=== PATIENT | female | born 1970 | race Caucasian/White ===

== ENCOUNTER 2019-04-05 18:20 | Emergency (ER) | payer BC, OTHER ==
[2019-04-05] MEDS ORDERED: IBUPROFEN 600 MG TABLET PO ONE (19:47)
--- NOTE | 2019-04-05 19:49 | ER Document Report ---
ED Medical Screen (RME) - General Chief Complaint: Dizziness Stated Complaint: DIZZINESS Time Seen by Provider: 04/05/19 19:46 Notes: 48-year-old female with recently diagnosed diabetes and anemia presents to the emergency department with heavy abnormal vaginal bleeding, pelvic pain, dizziness, lightheadedness, weakness. Patient had a recent ultrasound about 3 weeks ago diagnosed with an ovarian cyst. Patient said that she had to call out to work today because she is acutely weak and had a near syncopal episode. Exam: Abdomen soft, bowel sounds present, left lower quadrant tenderness to palpation I have greeted and performed a rapid initial assessment of this patient. A comprehensive ED assessment and evaluation of the patient, analysis of test results and completion of medical decision making process will be conducted by an additional ED providers. TRAVEL OUTSIDE OF THE [place] IN LAST 30 DAYS: No - Related Data Allergies/Adverse Reactions: No Known Allergies Allergy (Unverified 11/22/13 22:14) Past Medical History - Social History Family history: Arthritis, DM, Malignancy Renal/ Medical History: Reports: Hx Ectopic , Hx Pelvic Inflammatory Disease. Denies: Hx Ovarian Cysts Malignancy Medical History: Reports: Hx Cervical Cancer - pre cancer cells Psychiatric Medical History: Reports: Hx Bipolar Disorder Past Surgical History: Reports: Hx Cholecystectomy, Hx Tubal Ligation - Immunizations Immunizations up to date: Yes Hx Diphtheria, Pertussis, Tetanus Vaccination: Yes
[2019-04-05 21:08] LABS: ABSOLUTE EOSINOPHILS # (AUTO) 0.1 10^3/uL (0.0-0.6); ABSOLUTE LYMPHOCYTES (AUTO) 1.7 10^3/uL (0.5-4.7); ABSOLUTE MONOCYTES (AUTO) 0.4 10^3/uL (0.1-1.4); ABSOLUTE NEUT (AUTO) 2.7 10^3/uL (1.7-8.2); BASOPHILS % (AUTO) 0.7 % (0-2); EOSINOPHILS % (AUTO) 1.4 % (0-6); HEMATOCRIT 23.6 % (36.0-47.0); LYMPHOCYTES % (AUTO) 34.3 % (13-45); MEAN CORPUSCULAR HEMOGLOBIN 23.2 pg (27.0-33.4); MEAN CORPUSCULAR HGB CONC 31.1 g/dL (32.0-36.0); MEAN CORPUSCULAR VOLUME 75 fl (80-97); MONOCYTES % (AUTO) 8.8 % (3-13); PLATELET COUNT 336 10^3/uL (150-450); RED BLOOD COUNT 3.16 10^6/uL (3.72-5.28); RED CELL DISTRIBUTION WIDTH 15.9 % (11.5-14.0); SEGMENTED NEUTROPHILS % (AUTO) 54.8 % (42-78); TOTAL CELLS COUNTED % (AUTO) 100 %; WHITE BLOOD COUNT 4.8 10^3/uL (4.0-10.5)
[2019-04-05 21:11] LABS: HEMOGLOBIN 7.3 g/dL (12.0-15.5)
--- NOTE | 2019-04-05 21:11 | RADIOLOGY REPORT (SQ) ---
EXAM DESCRIPTION: US PELVIS TRANSVAGINAL COMPLETED DATE/TME: 04/05/2019 19:47 CLINICAL HISTORY: 48 years, Female, abnormal vag bleed Findings: The anterior uterus is anteverted and measures 10.1 x 6.8 x 5.9 cm. The lower uterine segment demonstrates hypoechoic thickening of the endometrium measuring 2.4 x 2.0 x 1.8 cm. Posterior myometrium demonstrates hypoechoic lesion measuring up to 3 cm, consistent with fibroid. Right ovary measures 3.6 x 2.2 x 1.7 cm. Left ovary is not visualized due to shadowing. Vascular flow preserved in the right ovary on color and spectral Doppler imaging. No free fluid in the cul-de-sac. No abnormal adnexal masses. IMPRESSION: Uterine fibroid. Endometrial thickening in the lower uterine segment.
[2019-04-05 21:26] LABS: ALKALINE PHOSPHATASE 87 U/L (38-126); ANION GAP 9 (5-19); ASPARTATE AMINO TRANSFERASE 204 U/L (14-36); BILIRUBIN,TOTAL 0.4 mg/dL (0.2-1.3); BLOOD UREA NITROGEN 8 mg/dL (7-20); CARBON DIOXIDE 24 mmol/L (22-30); CHLORIDE 103 mmol/L (98-107); GLUCOSE 92 mg/dL (75-110); POTASSIUM 4.3 mmol/L (3.6-5.0); TOTAL PROTEIN 7.4 g/dL (6.3-8.2)
[2019-04-05 21:29] LABS: APPEARANCE,URINE CLEAR; BILIRUBIN,URINE NEGATIVE (NEGATIVE); COLOR,URINE YELLOW; GLUCOSE, URINE NEGATIVE (NEGATIVE); KETONES,URINE NEGATIVE (NEGATIVE); LEUKOCYTE ESTERASE,URINE NEGATIVE (NEGATIVE); NITRITE,URINE NEGATIVE (NEGATIVE); PROTEIN,URINE NEGATIVE (NEGATIVE); URINE SPECIFIC GRAVITY 1.008; UROBILINOGEN,URINE NEGATIVE mg/dL (<2.0)
--- NOTE | 2019-04-05 22:10 | ER Document Report ---
ED Dizziness/Weakness - General Chief Complaint: Dizziness Stated Complaint: DIZZINESS Time Seen by Provider: 04/05/19 22:10 Mode of Arrival: Ambulatory Information source: Patient, Relative Notes: HISTORY OF PRESENT ILLNESS: Patient is a 48-year-old female with a past medical history of irregular menses who presents with weakness and dizziness after having profuse vaginal bleeding for the past 14 days. Patient reports that she was normally regular, however approximately 1 year ago began having episodes of irregular menses including episodes of extreme heaviness similar to her last 2 weeks before this presentation. Location: Vaginal Onset: 2 weeks ago Provocation: None Quality: Bleeding Radiation: None Severity: Mild to moderate Timing: Constant LMP: Current Associated symptoms: Denies fevers or chills, no nausea or vomiting, no chest pain or shortness of breath REVIEW OF SYSTEMS: CONSTITUTIONAL : Positive for general weakness. Denies fever or chills, no sweats. Denies recent illness. EENT: Denies eye, ear, throat, or mouth pain or symptoms. Denies nasal or sinus congestion. CARDIOVASCULAR: Denies chest pain. RESPIRATORY: Denies cough, cold, or chest congestion. Denies shortness of breath, difficulty breathing, or wheezing. GASTROINTESTINAL: Denies abdominal pain. Denies nausea, vomiting, or diarrhea. Denies constipation. GENITOURINARY: Denies difficulty urinating, painful urination, burning, frequency, or blood in urine. Positive for heavy vaginal bleeding with abnormal or irregular periods. MUSCULOSKELETAL: Denies neck or back pain or joint pain or swelling. SKIN: Denies rash or skin lesions. HEMATOLOGIC : Denies easy bruising or bleeding. LYMPHATIC: Denies swollen, enlarged glands. NEUROLOGICAL: Denies altered mental status or loss of consciousness. Denies headache. Denies weakness or paralysis or loss of use of either side. Denies problems with gait or speech. Denies sensory or motor loss. PSYCHIATRIC: Denies anxiety or stress or depression. All other systems reviewed and negative. PHYSICAL EXAMINATION: GENERAL: Pale-appearing, well-nourished and in no acute distress. HEAD: Atraumatic, normocephalic. No scalp deformity, depression, or crepitance. EYES: Pupils are 3 mm and equal/round/reactive to light, extraocular movements intact, sclera anicteric, conjunctiva are normal. ENT: Nares patent bilaterally, oropharynx clear without exudates or palatal petechia. Moist mucous membranes. No tonsil hypertrophy. NECK: Normal range of motion, supple without lymphadenopathy. LUNGS: Breath sounds present, equal, and clear to auscultation bilaterally. No wheezes, rales, or rhonchi. HEART: Regular rate and rhythm without murmurs, rubs, or gallops. 2+ peripheral pulses. Normal capillary refill. ABDOMEN: Soft, nontender, nondistended. Normoactive bowel sounds. No guarding, no rebound. No masses appreciated. BACK: Normal contour, no midline tenderness. Rectal exam deferred. PELVC: Deferred. EXTREMITIES: Normal range of motion, no pitting or edema. No cyanosis. NEUROLOGICAL: No focal neurological deficits. Moves all extremities spontaneously and on command. PSYCH: Normal mood, normal affect. No suicidal thoughts/ideations. No homicidal thoughts/ideations. No hallucinations. SKIN: Warm, dry, normal turgor, no rashes or lesions noted. ASSESSMENT AND PLAN: This patient is a 48-year-old female who presents with likely menorrhagia versus metromenorrhagia versus metrorrhagia. 1. Will obtain labs, urine, type and screen, test, and reassess. 2. Will consider transfusion if patient has acute anemia secondary to vaginal bleeding. TRAVEL OUTSIDE OF THE [place] IN LAST 30 DAYS: No - HPI Patient complains to provider of: Dizziness, Weakness Onset: This morning Onset/Duration: Gradual Quality of pain: No pain Severity: Moderate Pain Level: Denies Associated symptoms: Other - Vaginal bleeding Baseline gait: Walks w/o assistance - Related Data Allergies/Adverse Reactions: No Known Allergies Allergy (Unverified 11/22/13 22:14) Past Medical History - General Information source: Patient, Relative - Social History Smoking Status: Never Smoker Chew tobacco use (# tins/day): No Frequency of alcohol use: None Drug Abuse: None Lives with: Family Family History: Arthritis, DM, Hypertension, Malignancy, Thyroid Disfunction. denies: CAD, CVA, Hyperlipidemia Patient has suicidal ideation: No Patient has homicidal ideation: No - Past Medical History Cardiac Medical History: Reports: None Pulmonary Medical History: Reports: None EENT Medical History: Reports: None Neurological Medical History: Reports: None Endocrine Medical History: Reports: None Renal/ Medical History: Reports: Hx Ectopic , Hx Pelvic Inflammatory Disease. Denies: Hx Ovarian Cysts Malignancy Medical History: Reports: Hx Cervical Cancer - pre cancer cells GI Medical History: Reports: None Musculoskeletal Medical History: Reports None Skin Medical History: Reports None Psychiatric Medical History: Reports: Hx Bipolar Disorder Traumatic Medical History: Reports: None Infectious Medical History: Reports: None Past Surgical History: Reports: Hx Cholecystectomy, Hx Tubal Ligation - Immunizations Immunizations up to date: Yes Hx Diphtheria, Pertussis, Tetanus Vaccination: Yes Review of Systems - Review of Systems Constitutional: See HPI, Weakness EENT: No symptoms reported Cardiovascular: No symptoms reported Respiratory: No symptoms reported Gastrointestinal: No symptoms reported Genitourinary: No symptoms reported Female Genitourinary: See HPI, Vaginal bleeding Musculoskeletal: No symptoms reported Skin: No symptoms reported Hematologic/Lymphatic: No symptoms reported Neurological/Psychological: See HPI, Weakness -: Yes All other systems reviewed and negative Physical Exam - Vital signs Vitals: Temp Pulse BP Pulse Ox 97.9 F 82 125/69 100 04/05/19 19:14 04/05/19 19:14 04/05/19 19:14 04/05/19 19:14 Interpretation: Normal Course - Re-evaluation Re-evalutation: 04/06/19 06:09 Patient is being transfused her second unit of packed red blood cells. Plan will be to obtain a CBC approximately 1 hour after transfusion is complete and reassess the patient for discharge. - Vital Signs Vital signs: Temp Pulse Resp BP Pulse Ox 98.3 F 67 13 113/59 L 99 04/06/19 03:46 04/06/19 05:00 04/06/19 05:01 04/06/19 05:01 04/06/19 05:01 - Laboratory Result Diagrams: 04/05/19 20:52 04/05/19 20:52 Laboratory results interpreted by me: 04/05/19 04/05/19 04/05/19 20:52 20:52 21:00 RBC 3.16 L Hgb 7.3 L Hct 23.6 L MCV 75 L MCH 23.2 L MCHC 31.1 L RDW 15.9 H Sodium 135.8 L AST 204 H Urine Blood LARGE H Crossmatch 04/05/19 22:45 RBC Hgb Hct MCV MCH MCHC RDW Sodium AST Urine Blood Crossmatch See Detail - Diagnostic Test Radiology reviewed: Image reviewed, Reports reviewed - Transfer of Care Care transferred to following provider: Dr. Toro Discharge - Discharge Clinical Impression: Vaginal bleeding, Acute anemia Condition: Good Disposition: HOME, SELF-CARE Instructions: Vaginal Bleeding ([facility]) Additional Instructions: You have been evaluated in the Emergency Department for vaginal bleeding. While here, you had a blood transfusion and it is now safe to be discharged home. Please follow-up with your INVENTORY CONTROL CLERK as instructed in 24 to 48 hours. Return to the Emergency Department if you experience worsening bleeding, episodes of passing out, or any other concerning symptoms. Print Language: Ukrainian
[2019-04-05] MEDS ORDERED: ONDANSETRON 4 MG TAB.RAPDIS PO ONE (22:51)
[2019-04-05] MEDS ORDERED: LEVOFLOXACIN 500 MG TABLET PO ONE (22:52)
[2019-04-05] MEDS ORDERED: NORMAL SALINE 250 ML IV PRN (22:54)
[2019-04-06 10:27] LABS: ABSOLUTE EOSINOPHILS # (AUTO) 0.1 10^3/uL (0.0-0.6); ABSOLUTE LYMPHOCYTES (AUTO) 1.8 10^3/uL (0.5-4.7); ABSOLUTE MONOCYTES (AUTO) 0.5 10^3/uL (0.1-1.4); ABSOLUTE NEUT (AUTO) 2.2 10^3/uL (1.7-8.2); BASOPHILS % (AUTO) 0.8 % (0-2); EOSINOPHILS % (AUTO) 1.8 % (0-6); HEMATOCRIT 28.9 % (36.0-47.0); HEMOGLOBIN 9.1 g/dL (12.0-15.5); LYMPHOCYTES % (AUTO) 38.5 % (13-45); MEAN CORPUSCULAR HEMOGLOBIN 25.1 pg (27.0-33.4); MEAN CORPUSCULAR HGB CONC 31.4 g/dL (32.0-36.0); MONOCYTES % (AUTO) 9.9 % (3-13); PLATELET COUNT 270 10^3/uL (150-450); RED BLOOD COUNT 3.62 10^6/uL (3.72-5.28); RED CELL DISTRIBUTION WIDTH 16.2 % (11.5-14.0); TOTAL CELLS COUNTED % (AUTO) 100 %; WHITE BLOOD COUNT 4.6 10^3/uL (4.0-10.5)
[2019-04-06 10:32] LABS: MEAN CORPUSCULAR VOLUME 80 fl (80-97)
[2019-04-06 12:29] VITALS: BP 125/78
== END 2019-04-06 12:30 | disposition home or self-care (01) ==
LOC: ER 18:20
DX: D64.9 Anemia, unspecified (principal); N93.8 Other specified abnormal uterine and vaginal bleeding; R42 Dizziness and giddiness; Z90.49 Acquired absence of other specified parts of digestive tract; Z98.51 Tubal ligation status
CPT/HCPCS: 86900; 86901; 36415; 36430; 86850; 84703; 85025; 80053; 81001; 86920; 76830; 93976; P9016; 99284

== ENCOUNTER → 2019-04-16 | Outpatient (CLI) | payer BC ==
--- NOTE | 2019-04-16 12:25 | RADIOLOGY REPORT (SQ) ---
EXAM DESCRIPTION: MRI BREAST BILATERAL W/WO COMPLETED DATE/TIME: 04/16/2019 8:37 am REASON FOR STUDY: OTHER ABNORMAL AND INCONCLUSIVE FINDINGS R92.8 OTH ABN AND INCONCLUSIVE FINDINGS ON DX IMAGING OF ROXANA COMPARISON: Outside mammograms and ultrasound 01/17/2014, 03/19/2019 PATHOLOGIC CORRELATION: None. CONTRAST TYPE AND DOSE: 20 mL Dotarem. RENAL FUNCTION: GFR > 60. TECHNIQUE: MR imaging performed with a dedicated breast coil. Pre contrast T1 and T2 weighted images . Pre contrast and post contrast enhanced T1 weighted images with fat saturation. Subtraction images, 3D thick and thin MIPS, and kinetic analysis performed on an independent workstat ion. ([employer] workstation) Magnet strength: 1.5 T LIMITATIONS: None. FINDINGS: BREAST DENSITY: c. The breasts are heterogeneously dense, which may obscure small masses. BACKGROUND PARENCHYMAL ENHANCEMENT:None. RIGHT BREAST: No enhancing or suspicious masses. No clumped, regional/segmental ductal enhancement. In particular, no abnormal masses or enhancement in the far right upper outer quadrant. There is i ncidental finding of a 5 mm cyst right breast 12 o'clock position 5 cm from the nipple, 4 mm cyst in the deep central breast retroareolar, 3 to 4 mm cysts are present in the inferior right breast 4 to 6 o'clock position. CHEST WALL: Normal tissue planes. No abnormal internal mammary nodes. AXILLA: Normal axillary and retro-pectoral nodes. LEFT BREAST:No enhancing or suspicious masses. No clumped, regional/segmental ductal enhancement. Incidental finding of a 12 mm breast cyst left upper inner quadrant about 5 cm from the nipple. 4 mm and 6 mm simple cysts are present in the deep central retroareolar region. 4 mm and 5 mm cysts are present in the lower inner quadrant left breast 6 to 7 o'clock position. CHEST WALL: Normal tissue planes. No abnormal internal mammary nodes. AXILLA: Normal axillary and retro-pectoral nodes. OTHER:No identified liver, bone, or lung lesions. No other significant incidental findings. IMPRESSION: NORMAL MR OF THE BREASTS. BIRAD: RIGHT BREAST: 2 Benign findings. LEFT BREAST: 2 Benign findings. RECOMMENDATION: RECOMMENDED FOLLOW-UP: Please continue yearly bilateral screening mammography/tomosy nthesis in March 2020 TECHNICAL DOCUMENTATION: JOB ID: [id number] [employer]- All Rights Reserved Reading location - IP/workstation name: [email or web address]
== END ==
LOC: RAD 04-13 09:06
PROVIDERS: ATTEND Obstetrics & Gynecology Gynecology
DX: N60.02 Solitary cyst of left breast (principal); N60.01 Solitary cyst of right breast
CPT/HCPCS: 77049; A9576

== ENCOUNTER → 2019-09-20 | Outpatient (CLI) | payer BC ==
--- NOTE | 2019-09-13 10:40 | RADIOLOGY REPORT (SQ) ---
EXAM DESCRIPTION: CHEST PA/LATERAL COMPLETED DATE/TIME: 09/13/2019 10:27 am REASON FOR STUDY: PRE-OP COMPARISON: None. EXAM PARAMETERS: NUMBER OF VIEWS: two views TECHNIQUE: Digital Frontal and Lateral radiographic views of the chest acquired. RADIATION DOSE: NA LIMITATIONS: none FINDINGS: LUNGS AND PLEURA: No opacities, masses or pneumothorax. No pleural effusion. MEDIASTINUM AND HILAR STRUCTURES: No masses or contour abnormalities. HEART AND VASCULAR STRUCTURES: Heart normal size. No evidence for failure. BONES: No acute findings. HARDWARE: Cholecystectomy clips. OTHER: No other significant finding. IMPRESSION: NO SIGNIFICANT RADIOGRAPHIC FINDING IN THE CHEST. TECHNICAL DOCUMENTATION: JOB ID: [id number] [employer]- All Rights Reserved Reading location - IP/workstation name: [email or web address]
[2019-09-13 11:10] LABS: HEMATOCRIT 24.6 % (36.0-47.0); HEMOGLOBIN 8.1 g/dL (12.0-15.5); MEAN CORPUSCULAR HEMOGLOBIN 30.3 pg (27.0-33.4); MEAN CORPUSCULAR HGB CONC 32.9 g/dL (32.0-36.0); MEAN CORPUSCULAR VOLUME 92 fl (80-97); PLATELET COUNT 327 10^3/uL (150-450); RED BLOOD COUNT 2.67 10^6/uL (3.72-5.28); RED CELL DISTRIBUTION WIDTH 17.2 % (11.5-14.0); WHITE BLOOD COUNT 5.7 10^3/uL (4.0-10.5)
[2019-09-13 11:14] LABS: AMORPHOUS SEDIMENT,URINE 1+ /HPF; APPEARANCE,URINE TURBID; BILIRUBIN,URINE NEGATIVE (NEGATIVE); COLOR,URINE YELLOW; GLUCOSE, URINE NEGATIVE (NEGATIVE); KETONES,URINE NEGATIVE (NEGATIVE); LEUKOCYTE ESTERASE,URINE NEGATIVE (NEGATIVE); NITRITE,URINE NEGATIVE (NEGATIVE); PROTEIN,URINE NEGATIVE (NEGATIVE); URINE SPECIFIC GRAVITY 1.023; UROBILINOGEN,URINE NEGATIVE mg/dL (<2.0)
[2019-09-13 11:34] LABS: ANION GAP 10 (5-19); BLOOD UREA NITROGEN 8 mg/dL (7-20); CALCIUM 9.1 mg/dL (8.4-10.2); CARBON DIOXIDE 24 mmol/L (22-30); CHLORIDE 105 mmol/L (98-107); GLUCOSE 132 mg/dL (75-110); POTASSIUM 4.9 mmol/L (3.6-5.0)
--- NOTE | 2019-09-14 12:02 | EKG REPORT ---
SEVERITY:- NORMAL ECG - SINUS RHYTHM : Confirmed by: Jillian De La Rosa 14-Sep-2019 12:02:23
[~2019-09-20] MED LIST: CEFAZOLIN 1 GM/D5W RTU 1 GM/50 ML RTUPB IV ONE; CEFAZOLIN 1 GM/D5W RTU 1 GM/50 ML RTUPB IV PRN; DEXAMETHASONE SOD PHOSPHATE INJ 4 MG/1 ML VIAL ONE; FENTANYL CITRATE INJ/PF 100 MCG/2 ML AMPUL ONE; HYDROMORPHONE HCL INJ/PF 2 MG/ML AMPULE ONE; KETOROLAC TROMETHAMINE 60 MG/2 ML SDV ONE; LACTATED RINGERS 1000 ML IV PRN; LIDOCAINE 0.5% INJ-PF (5 MG/ML) 50 ML SDV ONE; LIDOCAINE 0.5% INJ-PF (5 MG/ML) 50 ML SDV SUBCUT PRN; MIDAZOLAM 2 MG/2 ML INJ ONE; ONDANSETRON HCL INJ/PF 4 MG/2 ML SDV ONE; PROPOFOL INJ 200 MG/20 ML VIAL IV ONE
[2019-09-20 05:50] VITALS: BP 146/73
[2019-09-20 06:40] LABS: ABSOLUTE EOSINOPHILS # (AUTO) 0.2 10^3/uL (0.0-0.6); ABSOLUTE LYMPHOCYTES (AUTO) 1.1 10^3/uL (0.5-4.7); ABSOLUTE MONOCYTES (AUTO) 0.5 10^3/uL (0.1-1.4); ABSOLUTE NEUT (AUTO) 4.8 10^3/uL (1.7-8.2); BASOPHILS % (AUTO) 0.3 % (0-2); HEMATOCRIT 27.3 % (36.0-47.0); HEMOGLOBIN 8.6 g/dL (12.0-15.5); MEAN CORPUSCULAR HEMOGLOBIN 29.2 pg (27.0-33.4); MEAN CORPUSCULAR HGB CONC 31.4 g/dL (32.0-36.0); MEAN CORPUSCULAR VOLUME 93 fl (80-97); PLATELET COUNT 326 10^3/uL (150-450); RED BLOOD COUNT 2.93 10^6/uL (3.72-5.28); RED CELL DISTRIBUTION WIDTH 15.7 % (11.5-14.0); SEGMENTED NEUTROPHILS % (AUTO) 72.7 % (42-78); TOTAL CELLS COUNTED % (AUTO) 100 %; WHITE BLOOD COUNT 6.6 10^3/uL (4.0-10.5)
== END ==
LOC: UNDOADMIN 05:21 → INOR 05:21 → OD 06:25 → EDSTATUS 09:15 → UNDODISIN 11:50
PROVIDERS: ATTEND Specialist
DX: Z01.810 Encounter for preprocedural cardiovascular examination (principal); Z01.812 Encounter for preprocedural laboratory examination; Z01.818 Encounter for other preprocedural examination; D25.1 Intramural leiomyoma of uterus
CPT/HCPCS: 93005; 86900; 86901; 36415 ×3; 86850; 84703; 85025; 85027; 80048; 81001; 71046; 93010; J0690; J1100; J1170; J1885; J2250; J2405; J2704; J3010; J3490

== ENCOUNTER 2019-10-18 11:53 | Emergency (ER) | payer BC ==
[2019-10-18] MEDS ORDERED: NORMAL SALINE 250 ML IV PRN (12:22)
[2019-10-18 12:55] LABS: HEMATOCRIT 15.5 % (36.0-47.0); MEAN CORPUSCULAR HEMOGLOBIN 28.8 pg (27.0-33.4); MEAN CORPUSCULAR HGB CONC 31.9 g/dL (32.0-36.0); MEAN CORPUSCULAR VOLUME 90 fl (80-97); PLATELET COUNT 349 10^3/uL (150-450); RED BLOOD COUNT 1.72 10^6/uL (3.72-5.28); RED CELL DISTRIBUTION WIDTH 17.4 % (11.5-14.0); WHITE BLOOD COUNT 9.7 10^3/uL (4.0-10.5)
--- NOTE | 2019-10-18 12:55 | ER Document Report ---
Entered by NORMA CRISTINA SCRIBE 10/18/19 1224 Acting as scribe for:MARIELLA MICHEL MD ED General - General Chief Complaint: Abnormal Lab Results Stated Complaint: ABNORMAL LABS Time Seen by Provider: 10/18/19 12:00 Primary Care Provider: ROBERT BUITRAGO MD [EMERITUS] - Follow up as needed Mode of Arrival: Ambulatory Information source: Patient Notes: This 48 year old female patient presents to the emergency department presents to the emergency department today with complaints of vaginal bleeding. Patient was seen by her OBGYN today and was found to have a hemoglobin of 4.8. Patient states she was scheduled to have a hysterectomy done on September 19 but she had some sort of abscess in the area so this was deferred at that time. Patient states she has been feeling tired and rundown recently. Patient states she was prescribed 10 mg of Provera which she stopped taking because it did not change her vaginal bleeding. Patient states she is passing clots every 15 to 45 minutes. Patient states she has had some abdominal cramping but that has subsided currently. TRAVEL OUTSIDE OF THE [place] IN LAST 30 DAYS: No - Related Data Allergies/Adverse Reactions: No Known Allergies Allergy (Verified 10/18/19 11:58) Past Medical History - General Information source: Patient - Social History Smoking Status: Former Smoker Cigarette use (# per day): No Chew tobacco use (# tins/day): No Frequency of alcohol use: Rare Drug Abuse: None Lives with: Family Family History: Arthritis, DM, Hypertension, Malignancy, Thyroid Disfunction Patient has suicidal ideation: No Patient has homicidal ideation: No Renal/ Medical History: Reports: Hx Ectopic Psychiatric Medical History: Reports: Hx Bipolar Disorder Past Surgical History: Reports: Hx Tubal Ligation - Immunizations Immunizations up to date: Yes Hx Diphtheria, Pertussis, Tetanus Vaccination: Yes Review of Systems - Review of Systems Constitutional: See HPI, Other - Hemoglobin of 4.8 today during outpatient labs drawn today at 11:30 AM EENT: No symptoms reported Cardiovascular: No symptoms reported Respiratory: No symptoms reported Gastrointestinal: No symptoms reported Genitourinary: No symptoms reported Female Genitourinary: See HPI, Vaginal bleeding Musculoskeletal: No symptoms reported Skin: No symptoms reported Hematologic/Lymphatic: No symptoms reported Neurological/Psychological: No symptoms reported -: Yes All other systems reviewed and negative Physical Exam - Vital signs Vitals: Temp Pulse Resp BP Pulse Ox 98.0 F 121 H 18 106/63 99 10/18/19 12:00 10/18/19 12:00 10/18/19 12:00 10/18/19 12:00 10/18/19 12:00 - Notes Notes: Physical Exam: General: Alert, appears very pale. Pale lips, conjunctiva, and nailbeds. HEENT: Normocephalic. Atraumatic. PERRL. Extraocular movements intact. Oropharynx clear. Neck: Supple. Non-tender. Respiratory: No respiratory distress. Clear and equal breath sounds bilaterally. Cardiovascular: Regular rate and rhythm. Abdominal: Normal Inspection. Non-tender. No distension. Normal Bowel Sounds. Back: No gross abnormalities. Extremities: Moves all four extremities. Upper extremities: Nailbeds are pale. Normal ROM. Lower extremities: Normal inspection. No edema. Normal ROM. Neurological: Normal cognition. AAOx4. Normal speech. Psychological: Normal affect. Normal Mood. Skin: Pale lips, conjunctiva, and nailbeds. Course - Re-evaluation Re-evalutation: 10/18/19 13:42 Hemoglobin is 4.9, 3 units of packed cells had been ordered with the initial lab work. - Vital Signs Vital signs: Temp Pulse Resp BP Pulse Ox 99.4 F 104 H 26 H 112/67 100 10/18/19 14:42 10/18/19 14:42 10/18/19 14:42 10/18/19 14:42 10/18/19 14:42 - Laboratory Result Diagrams: 10/18/19 12:42 10/18/19 12:42 Laboratory results interpreted by me: 10/18/19 10/18/19 10/18/19 12:42 12:42 12:42 RBC 1.72 L Hgb 4.9 L* Hct 15.5 L MCHC 31.9 L RDW 17.4 H Sodium 133.9 L Glucose 159 H Total Protein 6.2 L Albumin 3.4 L Crossmatch See Detail - Consults Dr. Buitrago Time consulted: 14:26 Consulted provider: follow-up in office - Encourage patient to take iron pills, take the Provera, call the office tomorrow morning for follow-up. He plans to talk with Dr. Rivers about iron infusions. - Transfer of Care Care transferred to following provider: Dr. Rodrigez Notes: 10/18/19 15:44 Patient is to receive 3 units of packed RBCs and then discharged home. Discharge - Discharge Clinical Impression: Menorrhagia Qualifiers: Menorrhagia type: with regular cycle Qualified Code(s): N92.0 - Excessive and frequent menstruation with regular cycle Anemia Qualifiers: Anemia type: unspecified type Qualified Code(s): D64.9 - Anemia, unspecified Condition: Stable Disposition: HOME, SELF-CARE Additional Instructions: Take your Provera as it was prescribed. Take the iron tablets. Take a stool softener so you do not become constipated. Call Dr. Buitrago tomorrow morning for follow-up. RETURN TO THE EMERGENCY ROOM IF ANY NEW OR WORSENING SYMPTOMS. Referrals: ROBERT BUITRAGO MD [EMERITUS] - Follow up as needed I personally performed the services described in the documentation, reviewed and edited the documentation which was dictated to the scribe in my presence, and it accurately records my words and actions.
[2019-10-18 12:58] LABS: INTERNATIONAL RATION (INR) 1.06; PROTHROMBIN TIME 13.8 SEC (11.4-15.4)
[2019-10-18 13:17] LABS: ALBUMIN 3.4 g/dL (3.5-5.0); ALKALINE PHOSPHATASE 64 U/L (38-126); ANION GAP 8 (5-19); ASPARTATE AMINO TRANSFERASE 23 U/L (14-36); BILIRUBIN,TOTAL 0.2 mg/dL (0.2-1.3); BLOOD UREA NITROGEN 8 mg/dL (7-20); CALCIUM 8.4 mg/dL (8.4-10.2); CARBON DIOXIDE 22 mmol/L (22-30); CHLORIDE 104 mmol/L (98-107); GLUCOSE 159 mg/dL (75-110); TOTAL PROTEIN 6.2 g/dL (6.3-8.2)
[2019-10-18 13:25] LABS: HEMOGLOBIN 4.9 g/dL (12.0-15.5)
[2019-10-18 13:34] LABS: ABSOLUTE LYMPHOCYTES# (MANUAL) 2.3 10^3/uL (0.5-4.7); ABSOLUTE MONOCYTES # (MANUAL) 0.3 10^3/uL (0.1-1.4); BASOPHILS % (MANUAL) 2 % (0-2); EOSINOPHILS % (MANUAL) 0 % (0-6); LYMPHOCYTES % (MANUAL) 24 % (13-45); MONOCYTES % (MANUAL) 3 % (3-13); SEGMENTED NEUTROPHILS % (MAN) 71 % (42-78); TOTAL CELLS COUNTED 100
[2019-10-18 13:37] LABS: ANISOCYTOSIS 1+; OVALOCYTES 1+; POLYCHROMASIA 1+; STOMATOCYTES SLIGHT; TEAR DROP CELLS SLIGHT
[2019-10-18 13:38] LABS: PLATELET COMMENT ADEQUATE; SCHISTOCYTES SLIGHT
[2019-10-19 01:36] VITALS: BP 99/64
[2019-10-19 09:27] LABS: PATH REVIEW PATHOLOGIST REVIEWED
== END 2019-10-19 01:38 ==
LOC: ER 11:53
DX: N92.0 Excessive and frequent menstruation with regular cycle (principal); D64.9 Anemia, unspecified; N93.9 Abnormal uterine and vaginal bleeding, unspecified; R10.9 Unspecified abdominal pain; Z87.891 Personal history of nicotine dependence
CPT/HCPCS: 99285; 86900; 86901; 36415; 36430; 86850; 85025; 85610; 80053; 86920; P9016; J7050

== ENCOUNTER 2019-11-02 12:00 | Inpatient (IN) | payer BC ==
[2019-12-01 10:16] LABS: HEMATOCRIT 31.5 % (36.0-47.0); HEMOGLOBIN 10.5 g/dL (12.0-15.5); MEAN CORPUSCULAR HEMOGLOBIN 29.8 pg (27.0-33.4); MEAN CORPUSCULAR HGB CONC 33.1 g/dL (32.0-36.0); MEAN CORPUSCULAR VOLUME 90 fl (80-97); PLATELET COUNT 326 10^3/uL (150-450); RED BLOOD COUNT 3.51 10^6/uL (3.72-5.28); WHITE BLOOD COUNT 4.2 10^3/uL (4.0-10.5)
[2019-12-01 10:17] LABS: APPEARANCE,URINE CLEAR; BILIRUBIN,URINE NEGATIVE (NEGATIVE); COLOR,URINE STRAW; GLUCOSE, URINE NEGATIVE (NEGATIVE); KETONES,URINE NEGATIVE (NEGATIVE); LEUKOCYTE ESTERASE,URINE NEGATIVE (NEGATIVE); NITRITE,URINE NEGATIVE (NEGATIVE); PROTEIN,URINE NEGATIVE (NEGATIVE); URINE SPECIFIC GRAVITY 1.004; UROBILINOGEN,URINE NEGATIVE mg/dL (<2.0)
[2019-12-01 10:36] LABS: ANION GAP 10 (5-19); BLOOD UREA NITROGEN 5 mg/dL (7-20); CALCIUM 9.4 mg/dL (8.4-10.2); CARBON DIOXIDE 25 mmol/L (22-30); CHLORIDE 102 mmol/L (98-107); GLUCOSE 111 mg/dL (75-110); POTASSIUM 4.8 mmol/L (3.6-5.0)
[2019-12-08] MEDS ORDERED: CEFAZOLIN 1 GM/D5W RTU 1 GM/50 ML RTUPB IV PRN (05:00)
[2019-12-08] MEDS ORDERED: GLYCOPYRROLATE 1 MG/5 ML VIAL ONE (05:00)
[2019-12-08] MEDS ORDERED: KETOROLAC TROMETHAMINE 60 MG/2 ML SDV ONE (05:00)
[2019-12-08] MEDS ORDERED: DEXAMETHASONE SOD PHOSPHATE INJ 4 MG/1 ML VIAL ONE (05:00)
[2019-12-08] MEDS ORDERED: ONDANSETRON HCL INJ/PF 4 MG/2 ML SDV ONE (05:00)
[2019-12-08] MEDS ORDERED: LIDOCAINE 0.5% INJ-PF (5 MG/ML) 50 ML SDV SUBCUT PRN (05:00)
[2019-12-08] MEDS ORDERED: ROCURONIUM BROMIDE INJ 50 MG/5 ML VIAL IV ONE (05:00)
[2019-12-08] MEDS ORDERED: SUCCINYLCHOLINE CHLORIDE INJ 200 MG/10 ML VIAL ONE (05:00)
[2019-12-08] MEDS ORDERED: RINGERS SOLUTION,LACTATED 1,000 ML IV PRN (05:00)
[2019-12-08] MEDS ORDERED: LACTATED RINGERS 1000 ML IV PRN (05:00)
[2019-12-08] MEDS ORDERED: NEOSTIGMINE METHYLSULFATE 10 MG/10 ML VIAL ONE (05:00)
[2019-12-08] MEDS ORDERED: METOCLOPRAMIDE HCL INJ/PF 10 MG/2 ML SDV ONE (05:00)
[2019-12-08] MEDS ORDERED: CEFAZOLIN 1 GM/D5W RTU 1 GM/50 ML RTUPB IV ONE (10:35)
[2019-12-08] MEDS ORDERED: FENTANYL CITRATE INJ/PF 250 MCG/5 ML AMPULE ONE (11:24)
[2019-12-08] MEDS ORDERED: PROPOFOL INJ 200 MG/20 ML VIAL IV ONE (11:24)
[2019-12-08] MEDS ORDERED: MIDAZOLAM 2 MG/2 ML INJ ONE (11:24)
[2019-12-08] MEDS ORDERED: BUPIVACAINE INJ/PF LIPOSOME/PF 266 MG/20 ML SDV ONE (12:03)
[2019-12-08] MEDS ORDERED: DIPHENHYDRAMINE HCL 50 MG/ML VIAL IV PRN (12:28)
[2019-12-08] MEDS ORDERED: FENTANYL CITRATE INJ/PF 100 MCG/2 ML AMPUL IV PRN ×3 (12:28)
[2019-12-08] MEDS ORDERED: MEPERIDINE HCL/PF INJ 25 MG/1 ML DISP.SYRIN IV PRN (12:28)
[2019-12-08] MEDS ORDERED: PROMETHAZINE HCL INJ 25 MG/1 ML VIAL IV PRN (12:28)
[2019-12-08] MEDS ORDERED: MORPHINE SULFATE 10 MG/ML INJ IV PRN (12:28)
[2019-12-08] MEDS ORDERED: FENTANYL CITRATE INJ/PF 100 MCG/2 ML AMPUL ONE (14:04)
--- NOTE | 2019-12-08 14:07 | Operative Report ---
Operative Report DATE OF SURGERY: 12/08/19 PREOPERATIVE DIAGNOSIS: uterine leiomyoma, anemia POSTOPERATIVE DIAGNOSIS: Same OPERATION: [facility]/[employer] SURGEON: ROBERT DAMICO ANESTHESIA: GA TISSUE REMOVED OR ALTERED: Cervix uterus fallopian tubes ovaries COMPLICATIONS: None ESTIMATED BLOOD LOSS: 150 mL's INTRAOPERATIVE FINDINGS: Approximately 16-week size uterus, normal tubes and ovaries PROCEDURE: INDICATIONS FOR PROCEDURE: The patient had unreasonable uterine bleeding despite multiple outpatient management. She desired attempt at definitive therapy. The usual risks of bleeding, infection, anesthesia, and damage to organs or tissues was discussed with the patient who understood, and she desires attempt at definitive therapy. PROCEDURE: The patient was taken to the operating room. The patient was placed in modified lithotomy position. Adequate anesthesia was ascertained. She was prepped and draped in the usual manner for a abdominal hysterectomy. EUA was performed after a time out was performed and antibiotics had been given. Bladder was drained under sterile technique. Surgical timeout was performed and the abdomen was prepped in anticipation of a midline incision. Graft abdomen was entered without difficulty through a midline incision extending through the subcutaneous fat and fascia. The peritoneum was entered uneventfully and abdominal contents were packed out of the pelvis. Notifies were appreciated and the uterus was brought in the operative field with assistance of a self-retaining retractor. The upper pedicles were the uterus was held where held with Sue clamps and the round ligaments were identified crossclamped cut and held with number chromic catgut. Using the LigaSure advanced device the uterus and utero-ovarian ligaments were cauterized down to the level of the uterine vessels bilaterally which is amputated from the cervix due to the large size of the uterus and need for the adequate visualization of the pelvis and cervix at this point. The uterine vessels were additionally ligated with number 1 chromic catgut. At this point the cervix was identified further the bladder was advanced inferiorly and the cervix was removed from the upper vagina with and oversewn with #1 chromic catgut . Attention was then turned to the ovaries which were identified the entirety of the brought in the operative field and the infundibulopelvic ligaments were crossclamped and the the both tubes and ovaries were removed with LigaSure device and and all lik ewise oversewn with number chromic catgut. Good hemostasis was confirmed throughout the fascia was then closed with double #1 double-stranded PDS suture status Exparel was placed and the subcuticular stitch of 3-0 plain gut was placed in skin approximated skin yoshi. The completion procedure all sponge needle count and instrument counts were correct. The bladder was drained of a small amount of urine at the completion of the case. All sponge and needle counts were correct.
[2019-12-08] MEDS ORDERED: MORPHINE SULFATE 10 MG/ML INJ ONE (14:25)
[2019-12-08] MEDS ORDERED: MORPHINE INJ 8 MG DOSE IM PRN (14:30)
[2019-12-08] MEDS ORDERED: PROMETHAZINE HCL INJ 25 MG/1 ML VIAL IM PRN (14:30)
[2019-12-08] MEDS ORDERED: MORPHINE INJ PRN (14:30)
[2019-12-08] MEDS: CEFAZOLIN 1 GM IV SCH ×2 (15:26→20:25)
[2019-12-08] MEDS: RTU IV SCH ×2 (15:26→20:25)
[2019-12-08] MEDS: OXYCODONE-ACETAMINOPHEN 5-325 MG TABLET PO PRN (15:48)
[2019-12-08] MEDS: MORPHINE INJ PRN ×2 (17:28→20:25)
[2019-12-08] MEDS: IBUPROFEN 800 MG TABLET PO SCH (22:51)
[2019-12-09] MEDS: IBUPROFEN 800 MG TABLET PO SCH ×3 (05:39→21:10)
[2019-12-09 08:18] LABS: MEAN CORPUSCULAR HEMOGLOBIN 30.9 pg (27.0-33.4); MEAN CORPUSCULAR HGB CONC 31.4 g/dL (32.0-36.0); PLATELET COUNT 385 10^3/uL (150-450); RED BLOOD COUNT 1.63 10^6/uL (3.72-5.28); RED CELL DISTRIBUTION WIDTH 18.9 % (11.5-14.0); WHITE BLOOD COUNT 9.4 10^3/uL (4.0-10.5)
[2019-12-09 08:24] LABS: MEAN CORPUSCULAR VOLUME 98 fl (80-97)
[2019-12-09] MEDS: OXYCODONE-ACETAMINOPHEN 5-325 MG TABLET PO PRN (08:33)
[2019-12-09 18:49] LABS: ABSOLUTE LYMPHOCYTES (AUTO) 1.1 10^3/uL (0.5-4.7); ABSOLUTE MONOCYTES (AUTO) 0.6 10^3/uL (0.1-1.4); ABSOLUTE NEUT (AUTO) 5.3 10^3/uL (1.7-8.2); BASOPHILS % (AUTO) 0.4 % (0-2); EOSINOPHILS % (AUTO) 0.1 % (0-6); HEMATOCRIT 22.5 % (36.0-47.0); LYMPHOCYTES % (AUTO) 15.8 % (13-45); MEAN CORPUSCULAR HEMOGLOBIN 30.7 pg (27.0-33.4); MEAN CORPUSCULAR HGB CONC 32.5 g/dL (32.0-36.0); MEAN CORPUSCULAR VOLUME 95 fl (80-97); MONOCYTES % (AUTO) 8.6 % (3-13); PLATELET COUNT 316 10^3/uL (150-450); RED BLOOD COUNT 2.38 10^6/uL (3.72-5.28); RED CELL DISTRIBUTION WIDTH 16.1 % (11.5-14.0); SEGMENTED NEUTROPHILS % (AUTO) 75.1 % (42-78); TOTAL CELLS COUNTED % (AUTO) 100 %; WHITE BLOOD COUNT 7.1 10^3/uL (4.0-10.5)
[2019-12-09 18:56] LABS: HEMOGLOBIN 7.3 g/dL (12.0-15.5)
[2019-12-10] MEDS: OXYCODONE-ACETAMINOPHEN 5-325 MG TABLET PO PRN (01:29)
[2019-12-10] MEDS: IBUPROFEN 800 MG TABLET PO SCH (05:17)
[2019-12-10 07:29] LABS: ABSOLUTE LYMPHOCYTES (AUTO) 1.6 10^3/uL (0.5-4.7); ABSOLUTE MONOCYTES (AUTO) 0.7 10^3/uL (0.1-1.4); ABSOLUTE NEUT (AUTO) 5.3 10^3/uL (1.7-8.2); BASOPHILS % (AUTO) 0.5 % (0-2); EOSINOPHILS % (AUTO) 0.5 % (0-6); HEMATOCRIT 26.7 % (36.0-47.0); MEAN CORPUSCULAR HEMOGLOBIN 31.2 pg (27.0-33.4); MEAN CORPUSCULAR HGB CONC 33.7 g/dL (32.0-36.0); MEAN CORPUSCULAR VOLUME 93 fl (80-97); MONOCYTES % (AUTO) 9.2 % (3-13); PLATELET COUNT 248 10^3/uL (150-450); RED BLOOD COUNT 2.88 10^6/uL (3.72-5.28); RED CELL DISTRIBUTION WIDTH 15.9 % (11.5-14.0); SEGMENTED NEUTROPHILS % (AUTO) 68.8 % (42-78); TOTAL CELLS COUNTED % (AUTO) 100 %; WHITE BLOOD COUNT 7.7 10^3/uL (4.0-10.5)
[2019-12-10 08:28] VITALS: BP 117/57
== END 2019-12-10 08:51 | disposition home or self-care (01) | DRG 743 ==
LOC: INOR 12-08 10:00 → 2N 12-08 15:05
PROVIDERS: ADMIT Specialist; ATTEND Specialist
PROC: 0UT20ZZ Resection of Bilateral Ovaries, Open Approach (ICD-10-PCS; 2019-12-08)
PROC: 0UT70ZZ Resection of Bilateral Fallopian Tubes, Open Approach (ICD-10-PCS; 2019-12-08)
PROC: 0UT90ZZ Resection of Uterus, Open Approach (ICD-10-PCS; principal; 2019-12-08 12:00)
DX: D25.1 Intramural leiomyoma of uterus (principal); E10.9 Type 1 diabetes mellitus without complications; D64.9 Anemia, unspecified; N93.8 Other specified abnormal uterine and vaginal bleeding
CPT/HCPCS: 36415; 36430; 80048; 81001; 81025; 840; 85025; 85027; 86850; 86900; 86901; 86920; 87635; 88307; 94799; C9290; C9803; J0330; J0690; J1100; J1885; J2250; J2270; J2405; J2704; J2710; J2765; J3010; J3490; J7120; P9016